=== PATIENT | male | born 1960 | race Caucasian/White ===

== ENCOUNTER 2018-03-26 12:32 | Emergency (ER) | payer BC, OTHER ==
[~2018-03-26] VITALS: Ht 170.2 cm; Wt 97.5 kg
[2018-03-26 12:32] VITALS: BP 123/73
[2018-03-26] MEDS ORDERED: TDAP [DIPH/PERTUSSIS/TET] 0.5 ML VIAL IM ONE ×2 (13:30→13:44)
[2018-03-26] MEDS ORDERED: LIDOCAINE 1% INJ 50 ML MDV IJ ONE (13:30)
== END 2018-03-26 14:07 | disposition home or self-care (01) ==
LOC: EDSEX 12:36 → ER 12:36
DX: S61.213A Laceration without foreign body of left middle finger without damage to nail, initial encounter (principal); W20.8XXA Other cause of strike by thrown, projected or falling object, initial encounter; Y93.89 Activity, other specified; Y92.89 Other specified places as the place of occurrence of the external cause; Y99.8 Other external cause status; I10 Essential (primary) hypertension
CPT/HCPCS: 12001; 73140; 90471; 90715; 99284; A4606; A6403 ×2; Z7610